=== PATIENT | male | born 1965 | race Caucasian/White ===

== ENCOUNTER 2017-01-09 10:09 | Emergency (ER) | payer MEDICAID ==
[~2017-01-09] VITALS: Ht 188 cm; Wt 95.3 kg
[~2017-01-09 10:09] MED LIST: ALBU8.5H4 IH; ASPI-991 PO; BECL8.7A6 IB; BENA20TA2 PO; BUPR150T12; LOVA10TA; QUET50TA
[2017-01-09] MEDS ORDERED: IV NS 0.9% 1,000 ML BAG IV ONE (10:30)
[2017-01-09] MEDS ORDERED: ONDANSETRON HCL/PF 4 MG/2 ML VIAL IVP ONE (10:30)
[2017-01-09] MEDS ORDERED: Thiamine 100 MG in IV D5W 50 ML IV SCH (10:30)
[2017-01-09 10:48] LABS: BASOPHILS # (AUTO) 0.1 /CMM (0.0-0.2); BASOPHILS % (AUTO) 0.6 % (0.0-2.0); EOSINOPHILS % (AUTO) 0.1 % (0.0-6.0); HEMATOCRIT 50 % (39-51); HEMOGLOBIN 16.3 g/dL (13.5-17.5); LYMPHOCYTES # (AUTO) 2.1 /CMM (0.8-4.8); LYMPHOCYTES % (AUTO) 19.6 % (20.0-44.0); MEAN CORPUSCULAR HEMOGLOBIN 28 PG (26.0-33.0); MEAN CORPUSCULAR HGB CONC 32 g/dl (31.0-36.0); MEAN CORPUSCULAR VOLUME 87 fL (80-96); MONOCYTES # (AUTO) 0.9 /CMM (0.1-1.30); NEUTROPHILS # (AUTO) 7.8 /CMM (1.8-8.9); NEUTROPHILS % (AUTO) 71.7 % (43.0-81.0); PLATELET COUNT (AUTO) 291 /CMM (150-450); RDW COEFFICIENT OF VARIATION 15.5 (11.5-15.0); RED BLOOD CELL COUNT(AUTO) 5.78 MIL/uL (4.5-6.0); WHITE BLOOD COUNT (AUTO) 10.9 K/uL (4.3-11.0)
--- NOTE | 2017-01-09 10:51 | NUR ---
CALLED PHARMACY FOR THIAMINE
--- NOTE | 2017-01-09 11:00 | NUR ---
ASSUME PT CARE. RESTING IN BED. HERE FOR DEPRESSION/ SI PLAN ON OVERDOSING ON MEDS. +ETOH. PLACED ON SI PRECAUTION. SEEN BY ED PROVIDER W/ ORDERS. WILL CONT TO MONITOR.
[2017-01-09 11:15] LABS: ALANINE AMINOTRANSFERASE 69 U/L (12-78); ALBUMIN 3.8 g/dL (3.4-5.0); ALCOHOL, BLOOD 189 mg/dL (0-0); ALKALINE PHOSPHATASE 134 U/L (46-116); ASPARTATE AMINOTRANSFERASE 45 U/L (15-37); BILIRUBIN,DIRECT 0.1 mg/dL (0.0-0.2); BILIRUBIN,TOTAL 0.4 mg/dL (0.2-1.0); CALCIUM, SERUM 8.8 mg/dL (8.5-10.1); CARBON DIOXIDE 24 mmol/L (21-32); CHLORIDE 104 mmol/L (98-107); CREATININE 0.9 mg/dL (0.6-1.3); GLUCOSE 98 mg/dL (74-106); POTASSIUM 4.1 mmol/L (3.5-5.1); SODIUM SERUM 144 mmol/L (136-145); TOTAL PROTEIN, SERUM 7.9 g/dL (6.4-8.2); UREA NITROGEN, BLOOD 17 mg/dL (7-18)
[2017-01-09 11:24] LABS: ACETAMINOPHEN < 2 ug/ml (10-30); SALICYLATE 2.3 mg/dL (2.8-20.0)
[2017-01-09] MEDS ORDERED: ONDANSETRON HCL/PF 4 MG/2 ML VIAL ONE ×2 (11:29→20:20)
[2017-01-09 13:33] LABS: APPEARANCE,URINE Clear (CLEAR); BILIRUBIN,URINE SMALL (NEGATIVE); BLOOD, URINE Trace-intact Ery/uL (NEGATIVE); COLOR,URINE Dark (YELLOW); KETONES,URINE 15 (NEGATIVE); LEUKOCYTE ESTERASE ,URINE Negative (NEGATIVE); NITRITE, URINE Negative (NEGATIVE); PH,URINE 5.5 (5.0-8.0); PROTEIN,URINE 100 mg/dl (NEGATIVE); UGLUCOSE Negative (NEGATIVE); UROBILINOGEN,URINE 0.2 EU/dL (0.2)
[2017-01-09 13:45] LABS: BACTERIA,URINE Rare /HPF (None Seen); SQUAMOUS EPITHELIAL CELL,UR Few /HPF (None Seen); WBC,URINE 0-2 /HPF (0-3)
[2017-01-09] MEDS ORDERED: DIAZEPAM 5 MG/ML 2 ML DISP.SYRIN ONE ×2 (13:51→20:21)
--- NOTE | 2017-01-09 13:52 | NUR ---
PT NOW APPEARS ANXIOUS, STATING, "I THINK IM GOING DT." DR LOPEZ MADE AWARE.
--- NOTE | 2017-01-09 13:56 | NUR ---
MEDICATED ORDERED. SEE EMAR.
[2017-01-09] MEDS ORDERED: DIAZEPAM 5 MG/ML 2 ML DISP.SYRIN IV ONE ×2 (14:00→20:00)
--- NOTE | 2017-01-09 15:30 | NUR ---
PT RESTING IN BED. ON MONITOR. STABLE CONDITION.
--- NOTE | 2017-01-09 18:47 | NUR ---
PT C/O NAUSEA AND ANXIETY. DR RODRIGUEZ MADE AWARE.
--- NOTE | 2017-01-09 19:31 | NUR ---
RN Tool Analyst called for sitter.
[2017-01-09] MEDS ORDERED: ONDANSETRON HCL/PF 4 MG/2 ML VIAL IV ONE (20:00)
--- NOTE | 2017-01-09 20:11 | NUR ---
CALLED [facility] TO FOLLOW UP WITH AN UPDATE, SPOKE WITH MEHRAN SHE SAID SHE SAID THEIR FACILITY IS FULL AND CANT ACCEPT ANY PATIENTS.
--- NOTE | 2017-01-09 23:54 | NUR ---
pt requesting valium for detox, states he is withdrawing from alcohol, also requesting for seroquel, usually takes at night. pt ambulatory w/ steady gait, resp even & unlabored, VSS w/ no apparent distress noted. Dr. Paiz notified.
--- NOTE | 2017-01-10 02:07 | NUR ---
pt restless, ambulating back and forth to nurse's station, requesting to speak w/ MD. pt instructed to wait in rm for MD. Dr. Paiz notified.
--- NOTE | 2017-01-10 04:02 | NUR ---
pt resting in bed w/ nad noted. Awaiting bed for voluntary admission.
--- NOTE | 2017-01-10 05:53 | NUR ---
PER EDWARD AT [facility], NO AVAILABLE BEDS AT THIS TIME, PENDING PT DISCHARGES IN AM, TO CHECK BACK AFTER 8AM.
--- NOTE | 2017-01-10 06:59 | NUR ---
DIETARY CALLED FOR LOW NA CARDIAC SAFETY TRAY.
--- NOTE | 2017-01-10 07:30 | NUR ---
Patient is resting comfortably in bed with eyes closed. Easily aroused. VSS
--- NOTE | 2017-01-10 08:59 | NUR ---
CALLED ART TO BE RE-EVALUATED
--- NOTE | 2017-01-10 09:30 | NUR ---
Patient is resting comfortably in bed with eyes closed. Easily aroused. VSS
--- NOTE | 2017-01-10 09:37 | NUR ---
SPOKE WITH AMMY,INTAKE AT [facility], STS SHE HAS NO RECORD OF THIS PT, CLINICALS FAXED TO [phone]
--- NOTE | 2017-01-10 09:45 | NUR ---
PT WAS SEEN BY , WILL GIVE MEDS ORDERED.
[2017-01-10] MEDS ORDERED: CHLORDIAZEPOXIDE HCL 25 MG CAPSULE ONE (09:49)
[2017-01-10] MEDS ORDERED: ONDANSETRON 4 MG TAB.RAPDIS ONE (09:50)
[2017-01-10] MEDS ORDERED: LORAZEPAM INJ 2 MG/ML VIAL ONE (09:51)
--- NOTE | 2017-01-10 09:55 | NUR ---
MARYCRUZ spoke with ED JENNIFER Haile who informed MARYCRUZ that he had faxed clinicals to [facility] an hour ago and has not heard back from them. MARYCRUZ contacted [facility] Intake and spoke to Kelly who informed MARYCRUZ they have not received any fax and to re-fax clinicals. MARYCRUZ faxed clinicals to Kelly at intake .
[2017-01-10] MEDS ORDERED: CHLORDIAZEPOXIDE HCL 25 MG CAPSULE PO ONE (10:00)
[2017-01-10] MEDS ORDERED: LORAZEPAM INJ 2 MG/ML VIAL IM ONE (10:00)
[2017-01-10] MEDS ORDERED: ONDANSETRON 4 MG TAB.RAPDIS SL ONE (10:00)
--- NOTE | 2017-01-10 10:00 | NUR ---
PT GIVEN 1MG ATIVAN IM ONCE. WASTED WITH CATARINA, RN - 1MG.
--- NOTE | 2017-01-10 12:15 | NUR ---
Patient is resting comfortably in bed with eyes closed. Easily aroused. VSS
--- NOTE | 2017-01-10 14:28 | NUR ---
ULISES FROM [facility] CALLED PATIENT WILL BE ACCEPTED BY DR RAYGOZA.
--- NOTE | 2017-01-10 14:37 | NUR ---
CALLED [facility] FOR TRANSPORT, ETA OF 1530.
--- NOTE | 2017-01-10 15:20 | NUR ---
Patient discharged to home in stable condition. Written and verbal after care instructions given. Patient verbalizes understanding of instruction. Report given to mayi, elana, pt going back to [facility].
[2017-01-10 15:26] VITALS: BP 126/75
== END 2017-01-10 15:25 ==
LOC: ER 10:12
DX: F32.9 Major depressive disorder, single episode, unspecified (principal); F10.20 Alcohol dependence, uncomplicated; I10 Essential (primary) hypertension; J45.909 Unspecified asthma, uncomplicated; Z79.82 Long term (current) use of aspirin; F17.200 Nicotine dependence, unspecified, uncomplicated
CPT/HCPCS: 36415; 80048-TC; 80076-TC; 80305; 81000-TC; 83735-TC; 85025-TC; A4606; G0480; J2060; J2405; J3360; J3411; J7030; J7060; Q0162; Z7610

== ENCOUNTER 2017-01-19 18:26 | Inpatient (IN) | payer MEDICAID ==
[~2017-01-19] VITALS: Ht 190.5 cm; Wt 97.5 kg
--- NOTE | 2017-01-19 18:26 | NUR ---
BIBRA 78 C/O OVERDOSE WITH SEROQUEL (ABOUT 20 TABS) AND BENAZEPRIL (ABT 10) PER PATIENT REPORT, HYPOTENSIVE EMBOSSER APPRENTICE
[2017-01-19] MEDS ORDERED: ACTIVATED CHARCOAL 25 GM/120 ML TUBE ONE ×2 (18:56→19:00)
[2017-01-19] MEDS ORDERED: ACTIVATED CHARCOAL 25 GM/120 ML TUBE PO ONE (19:00)
[2017-01-19] MEDS ORDERED: IV NS 0.9% 1,000 ML BAG IV ONE ×3 (19:00→22:30)
[2017-01-19] MEDS ORDERED: ONDANSETRON HCL/PF 4 MG/2 ML VIAL ONE (19:05)
[2017-01-19 19:12] LABS: BASOPHILS # (AUTO) 0.1 /CMM (0.0-0.2); BASOPHILS % (AUTO) 1.1 % (0.0-2.0); EOSINOPHILS # (AUTO) 0.2 /CMM (0.0-0.7); EOSINOPHILS % (AUTO) 3.3 % (0.0-6.0); HEMATOCRIT 36 % (39-51); HEMOGLOBIN 12.1 g/dL (13.5-17.5); LYMPHOCYTES # (AUTO) 1.4 /CMM (0.8-4.8); LYMPHOCYTES % (AUTO) 23.3 % (20.0-44.0); MEAN CORPUSCULAR HEMOGLOBIN 29 PG (26.0-33.0); MEAN CORPUSCULAR HGB CONC 33 g/dl (31.0-36.0); MEAN CORPUSCULAR VOLUME 87 fL (80-96); MONOCYTES # (AUTO) 0.6 /CMM (0.1-1.30); MONOCYTES % (AUTO) 9.4 % (2.0-12.0); NEUTROPHILS # (AUTO) 3.9 /CMM (1.8-8.9); NEUTROPHILS % (AUTO) 62.9 % (43.0-81.0); PLATELET COUNT (AUTO) 315 /CMM (150-450); RDW COEFFICIENT OF VARIATION 14.5 (11.5-15.0); RED BLOOD CELL COUNT(AUTO) 4.19 MIL/uL (4.5-6.0); WHITE BLOOD COUNT (AUTO) 6.2 K/uL (4.3-11.0)
--- NOTE | 2017-01-19 19:14 | NUR ---
MIS DIRECTOR AT BEDSIDE
[2017-01-19 19:26] LABS: CARBON DIOXIDE 23 mmol/L (21-32); CHLORIDE 109 mmol/L (98-107); CREATININE 1.1 mg/dL (0.6-1.3); GLUCOSE 118 mg/dL (74-106); SODIUM SERUM 140 mmol/L (136-145); UREA NITROGEN, BLOOD 18 mg/dL (7-18)
[2017-01-19 19:32] LABS: ACETAMINOPHEN 2 ug/ml (10-30); ALANINE AMINOTRANSFERASE 47 U/L (12-78); ALBUMIN 2.8 g/dL (3.4-5.0); ALCOHOL, BLOOD < 3 mg/dL (0-0); ALKALINE PHOSPHATASE 63 U/L (46-116); ASPARTATE AMINOTRANSFERASE 20 U/L (15-37); BILIRUBIN,DIRECT 0.1 mg/dL (0.0-0.2); BILIRUBIN,TOTAL 0.3 mg/dL (0.2-1.0); TOTAL PROTEIN, SERUM 5.5 g/dL (6.4-8.2)
[2017-01-19 19:33] LABS: SALICYLATE 1.6 mg/dL (2.8-20.0)
[2017-01-19 19:34] LABS: TROPONIN I < 0.017 ng/mL (0.00-0.056)
--- NOTE | 2017-01-19 20:56 | NUR ---
UNABLE TO PROVIDE URINE MARIBEL WEBBER MADE AWARE
[2017-01-19 21:05] LABS: APPEARANCE,URINE Clear (CLEAR); BILIRUBIN,URINE Negative (NEGATIVE); BLOOD, URINE Negative Ery/uL (NEGATIVE); COLOR,URINE Yellow (YELLOW); KETONES,URINE Negative (NEGATIVE); LEUKOCYTE ESTERASE ,URINE Negative (NEGATIVE); NITRITE, URINE Negative (NEGATIVE); PH,URINE 6.5 (5.0-8.0); PROTEIN,URINE Negative (NEGATIVE); UGLUCOSE Negative (NEGATIVE); UROBILINOGEN,URINE 0.2 EU/dL (0.2)
[2017-01-19] MEDS ORDERED: IV NS 0.9% 1,000 ML IV PRN (22:49)
--- NOTE | 2017-01-19 22:54 | NUR ---
REPORT GIVEN TO SELENA LOU.
[2017-01-19 22:56] LABS: CALCIUM, SERUM 7.7 mg/dL (8.5-10.1); CREATININE 0.9 mg/dL (0.6-1.3); POTASSIUM 4.2 mmol/L (3.5-5.1)
[2017-01-19] MEDS ORDERED: MAG HYDROX/AL HYDROX/SIMETH 30 ML UDC PO PRN ×2 (23:00→23:30)
[2017-01-19] MEDS ORDERED: ACETAMINOPHEN 325 MG TABLET PO PRN ×2 (23:00→23:30)
[2017-01-19] MEDS ORDERED: Z GUARD REMEDY 2 OZ OINT TP PRN ×2 (23:00→23:30)
[2017-01-19] MEDS ORDERED: ONDANSETRON HCL/PF 4 MG/2 ML VIAL IVP PRN ×2 (23:00→23:30)
[2017-01-19] MEDS ORDERED: MAGNESIUM HYDROXIDE 30 ML UDC PO PRN ×2 (23:00→23:30)
[2017-01-19] MEDS ORDERED: ZOLPIDEM TARTRATE 5 MG TABLET PO PRN ×2 (23:00→23:30)
[2017-01-19] MEDS ORDERED: ALBUTEROL SULFATE 8 GM HFA.AER.AD IH PRN ×2 (23:00→23:30)
[2017-01-19] MEDS ORDERED: HYDROCODONE/APAP 5/325MG 1 EACH TABLET PO PRN ×2 (23:00→23:30)
[2017-01-19 23:15] VITALS: BP 109/64
[2017-01-19] MEDS: IV NS 0.9% 1,000 ML IV PRN (23:42)
[2017-01-19] MEDS ORDERED: LORAZEPAM 1 MG TABLET ONE (23:58)
[2017-01-20] VITALS (22 sets, daily range): BP systolic 69–140; BP diastolic 37–82
--- NOTE | 2017-01-20 | NUR ---
OPERATIONS AND INTELLIGENCE ASSISTANT - REC'D PT. FROM ER, COOPERATIVE & ALERT X 3. PT. STATES THAT HE IS HOMELESS & HIS LEFT HIM FOR GOOD. PT. REQUESTED ATIVAN & STATES HE KNOWS WHEN HIS DT'S START. ATIVAN ONE MG/PO WAS ADM. LAST NIGHT. PT. WAS IVONNE - ATIVE, EXCEPT FOR WHEN HE FELL ASLEEP. PT.TOOK OFF BP CUFF & SAT MONITOR & SAID HE CANNOT SLEEP W/ALL THE "WIRES". O2 SATS ARE >94% ON O2/2L/NC. PT. DRANK H20 & ATE 2 SANDWICHES UPON ADMISSION. PT.IS USING URINAL WELL. AFEBRILE.
[2017-01-20] MEDS: LORAZEPAM 1 MG TABLET PO PRN ×6 (00:14→23:47)
--- NOTE | 2017-01-20 07:00 | NUR ---
RN NOTES RECEIVED PT ON BED, A/Ox3, RESPIRATION EVEN AND UNLABORED, ON O2 2L N/C , O2 SAT 95%, NO SOB NOTED ,ON TEL NSR IN 60'S , L FA AND R WRIST IV G 20 SITES CDI, WITH NS AT 100 CC/HR RUNNING VIA LFA IV SITE , NO DISTRESS NOTED, SR UP x3, CALL LIGHT WITHIN EASY REACH. CONTINUE TO MONITOR PT CLOSELY AND NOTIFY MD FOR ANY SIGNIFICANT CHANGES. Addendum: 01/20/17 at 1057 by AKILAH CRUZ RN CORRECTION PT HAS Katelyn ROSA IV SITE G 20 AND R WRIST H/L G 22
[2017-01-20] MEDS ORDERED: PANTOPRAZOLE 40 MG TABLET.DR PO SCH (07:30)
[2017-01-20] MEDS ORDERED: ALBUTEROL FS 2.5 MG/3 ML VIAL.NEB NEB PRN (08:00)
[2017-01-20] MEDS: PANTOPRAZOLE 40 MG TABLET.DR PO SCH (08:24)
[2017-01-20] MEDS: ASPIRIN EC 81 MG TABLET.DR PO SCH (08:24)
[2017-01-20] MEDS: IV NS 0.9% 1,000 ML IV PRN (08:57)
[2017-01-20] MEDS ORDERED: FLUTICASONE/SALMETEROL DISKUS IH SCH ×2 (09:00)
[2017-01-20] MEDS ORDERED: ASPIRIN EC 81 MG TABLET.DR PO SCH (09:00)
[2017-01-20] MEDS: FLUTICASONE/VILANTEROL 1 EACH BLST.W.DEV IH SCH (10:05)
--- NOTE | 2017-01-20 11:22 | NUR ---
RN NOTES PT STABLE , CALM AND COOPERATIVE AT THIS TIME, AWAITING FOR PSYCH CONSULT TO EVALUATE THE PT .CONTINUE TO MONITOR
--- NOTE | 2017-01-20 14:24 | NUR ---
RN NOTES PT RESTING ,CALM , COOPERATIVE , CHELSEA ANY DISTRESS , CONTINUE TO MONITOR .
--- NOTE | 2017-01-20 15:10 | NUR ---
RN NOTES DR KAY AT THE BEDSIDE SEEING THE PATIENT. CRISIS TEAM NOTIFIED TO EVALUATE THE PT PER DR. KAY'S ORDER .
[2017-01-20] MEDS: ESCITALOPRAM OXALATE (10 MG) 10 MG TABLET PO SCH (15:46)
[2017-01-20] MEDS: LITHIUM CARBONATE 150 MG CAPSULE PO SCH ×2 (16:17→20:45)
--- NOTE | 2017-01-20 17:03 | NUR ---
RN NOTES PT WANTS TO GO OUT AND SMOKE, CHARGE NURSE LAURIE AND DR GAN NOTIFIED , NEW ORDER RECEIVED . PT CAN GO TO MED- SURG UNIT WITH 1:1 SITTER , CONTINUE TO MONITOR PT CLOSELY.
[2017-01-20] MEDS: FOLIC ACID 1 MG TABLET PO SCH (17:24)
[2017-01-20] MEDS: NICOTINE PATCH (21MG) 21 MG PATCH.TD24 TD SCH (17:24)
[2017-01-20] MEDS: THIAMINE HCL 100 MG TABLET PO SCH (17:24)
[2017-01-20] MEDS: CYANOCOBALAMIN 100 MCG TABLET PO SCH (18:04)
--- NOTE | 2017-01-20 18:30 | NUR ---
RN NOTES PT AT REST, CALM AND COOPERATIVE AT THIS TIME ,RESPIRATION EVEN AND UNLABORED, NO DISTRESS NOTED, MEDICATED PER MD ORDER , WILL ENDORSE TO PET FEEDER RN FOR HONG .
[2017-01-20] MEDS ORDERED: QUETIAPINE FUMARATE 100 MG TABLET PO SCH (22:00)
--- NOTE | 2017-01-20 22:17 | NUR ---
STOCK CAR DRIVER - REC'D PT. A&O X 3, PT. HAS 1:1 SITTER AT BS. PT. IS FOLLOWING COMMANDS, VSS, AFEBRILE. PT.IS USING URINAL. GOOD UOP. ALL PULSES PALPABLE X 4 EXT. PM MEDS ADM. INCLUDING ATIVAN ONE MG/PO FOR COMFORT. PT.IS ON R/A & HAS O2 SATS >95%. PT. HAS 2 PIV'S THAT ARE HL'D & ALL PORTS PATENT TO FLUSH. PT. WAS TX'D TO [facility]=RM#[id number] 2. VERBAL REPORT PHONED TO MIGUEL ÁNGEL PAUL AT 22:00. MED. SURG STATUS. CONT. POC.
--- NOTE | 2017-01-20 22:30 | NUR ---
RECEIVED PT transfer from ICU ,pt admitted suicide attempt drug overdose. pt alert oriented, " no thought of suicide attempt at this time" as quote by pt. retains a 1:1 sitter. pt verbalized being depressed and even cries feeling depressed that he was not known by his daughter. q 3 hrs of ativan, denies any pain.eat well. will continue to monitor s/sx of suicide. vss,afebrile.
[2017-01-21] MEDS: LORAZEPAM 1 MG TABLET PO PRN ×3 (02:44→10:45)
--- NOTE | 2017-01-21 06:30 | NUR ---
PT SAYS NOT SLEEPING WELL OVERNIGHT, STILL DEPRESSED, CONTINUE WITH ATIVAN Q3HRS.DENIES ANY PAIN, NO TREMORS, NO SEIZURE EPISODE.WILL CONTINUE TO MONITOR.
[2017-01-21 06:43] LABS: BASOPHILS # (AUTO) 0.1 /CMM (0.0-0.2); BASOPHILS % (AUTO) 1.6 % (0.0-2.0); EOSINOPHILS # (AUTO) 0.5 /CMM (0.0-0.7); EOSINOPHILS % (AUTO) 6.2 % (0.0-6.0); HEMATOCRIT 41 % (39-51); HEMOGLOBIN 13.6 g/dL (13.5-17.5); LYMPHOCYTES # (AUTO) 2.8 /CMM (0.8-4.8); LYMPHOCYTES % (AUTO) 35.6 % (20.0-44.0); MEAN CORPUSCULAR HEMOGLOBIN 29 PG (26.0-33.0); MEAN CORPUSCULAR HGB CONC 33 g/dl (31.0-36.0); MEAN CORPUSCULAR VOLUME 88 fL (80-96); MONOCYTES # (AUTO) 0.8 /CMM (0.1-1.30); MONOCYTES % (AUTO) 9.8 % (2.0-12.0); NEUTROPHILS # (AUTO) 3.7 /CMM (1.8-8.9); NEUTROPHILS % (AUTO) 46.8 % (43.0-81.0); PLATELET COUNT (AUTO) 338 /CMM (150-450); RDW COEFFICIENT OF VARIATION 14.9 (11.5-15.0); RED BLOOD CELL COUNT(AUTO) 4.72 MIL/uL (4.5-6.0); WHITE BLOOD COUNT (AUTO) 7.9 K/uL (4.3-11.0)
[2017-01-21 06:57] LABS: CALCIUM, SERUM 8.5 mg/dL (8.5-10.1); CREATININE 0.8 mg/dL (0.6-1.3); POTASSIUM 3.8 mmol/L (3.5-5.1)
--- NOTE | 2017-01-21 07:31 | NUR ---
MS/RN OPENING NOTE PATIENT RECEIVED IN BED AWAKE IN STABLE CONDITION. A/O X 4. NO SINGS OF ACUTE DISTRESS. NO COMPLAIN OF PAIN OR DISCOMFORT. 1:1 SITTER AT BEDSIDE. ALL NEEDS ATTENDED TO. CALL LIGHT WITHIN REACH. WILL CONTINUE TO MONITOR TO ENSURE SAFETY.
[2017-01-21] MEDS: NICOTINE PATCH (21MG) 21 MG PATCH.TD24 TD SCH (08:40)
[2017-01-21] MEDS: ESCITALOPRAM OXALATE (10 MG) 10 MG TABLET PO SCH (08:40)
[2017-01-21] MEDS: THIAMINE HCL 100 MG TABLET PO SCH (08:40)
[2017-01-21] MEDS: ASPIRIN EC 81 MG TABLET.DR PO SCH (08:40)
[2017-01-21] MEDS: FOLIC ACID 1 MG TABLET PO SCH (08:41)
[2017-01-21] MEDS: PANTOPRAZOLE 40 MG TABLET.DR PO SCH (08:41)
[2017-01-21] MEDS: LITHIUM CARBONATE 150 MG CAPSULE PO SCH (08:41)
--- NOTE | 2017-01-21 08:46 | NUR ---
MARYCRUZ received a voicemail from Noe Fox informing MARYCRUZ that pt. would like to go to [facility] for voluntary psychiatric hospitalization. MARYCRUZ reviewed clinicals and faxed clinicals to intake at . MARYCRUZ contacted [facility] and spoke to Amee in intake who informed MARYCRUZ that she did received the fax and will review clinicals and follow up with MARYCRUZ.
[2017-01-21] MEDS: FLUTICASONE/VILANTEROL 1 EACH BLST.W.DEV IH SCH (09:00)
[2017-01-21] MEDS: CYANOCOBALAMIN 100 MCG TABLET PO SCH (10:45)
--- NOTE | 2017-01-21 10:46 | NUR ---
MARYCRUZ received a call back from Kelly from [facility] informing SW that they are accepting pt. and to fax discharge note that states "pt. is medically cleared". MARYCRUZ informed Dr. Morales to include "medically cleared" in his discharge summary.
[2017-01-21] MEDS ORDERED: ESCI10TA PO (10:57)
[2017-01-21] MEDS ORDERED: LITH150C PO (10:57)
[2017-01-21] MEDS ORDERED: QUET100T PO (10:57)
--- NOTE | 2017-01-21 11:34 | NUR ---
Social service consult requested by MARIANO Fox LCSW regarding pt. wanting voluntary psychiatric hospital at [facility]. Pt. was admitted to [facility] for intentional overdose and suicidal attempt. SW met with pt. bedside. Pt. is alert and oriented x4. Pt. informed SW that he has been homeless for the past week and a half due to relapsing and drinking alcohol. Pt. has been in two alcohol treatment programs in the past in [facility]. Pt's mailing address is [address] [place] [address]. [place] [id number]. Pt. would like to go voluntarily to [facility] for further treatment. SW informed pt. he has been accepted and [facility] will arrange transportation for him to go to [facility] located at [address] [place] [address]. ([phone]) MARYCRUZ contacted medsurchristine Cabezas and informed her to have pt's RN contact RN at [facility] for RN to RN report and Dr. Shirley is the accepting doctor.
--- NOTE | 2017-01-21 12:20 | NUR ---
MS/RN SEEN BY DR GAN PATIENT SEEN BY DR GAN WITH ORDERS TO DISCHARGE TO [facility] [place].
--- NOTE | 2017-01-21 12:54 | NUR ---
MS/RADIOLOGIC TECHNOLOGY INSTRUCTOR PATIENT DISCHARGED TO [facility]. A/O X 4. VOLUNTARY ADMISSIONS TO PSYCH UNIT. REPORT GIVEN TO GINNY CHARGE NURSE. NO SIGNS OF ACUTE DISTRESS. NO COMPLAIN OF PAIN OR DISCOMFORT. DISCHARGE INSTRUCTIONS AND TEACHING PROVIDED. VERBALIZED UNDERSTANDING. ALL NEEDS ATTENDED TO. REMOVE NAME BAND AND IV SITE. LEFT VIA TAXI IN STABLE CONDITION.
== END 2017-01-21 12:30 | disposition home or self-care (01) | DRG 812 ==
LOC: ER 18:27 → ICU 23:21 → MED 01-20 22:00
DX: T43.592A Poisoning by other antipsychotics and neuroleptics, intentional self-harm, initial encounter (principal); E44.0 Moderate protein-calorie malnutrition; E83.51 Hypocalcemia; F31.5 Bipolar disorder, current episode depressed, severe, with psychotic features; I10 Essential (primary) hypertension; E78.5 Hyperlipidemia, unspecified; Z59.0 Homelessness; T43.591A Poisoning by other antipsychotics and neuroleptics, accidental (unintentional), initial encounter; T46.4X1A Poisoning by angiotensin-converting-enzyme inhibitors, accidental (unintentional), initial encounter; Y92.009 Unspecified place in unspecified non-institutional (private) residence as the place of occurrence of the external cause; J45.909 Unspecified asthma, uncomplicated; Z79.899 Other long term (current) drug therapy; Z79.82 Long term (current) use of aspirin; R73.9 Hyperglycemia, unspecified; F10.20 Alcohol dependence, uncomplicated; Y90.0 Blood alcohol level of less than 20 mg/100 ml
CPT/HCPCS: 36415; 71010-TC; 80048-TC; 80076-TC; 80305; 81000-TC; 84484-TC; 85025-TC; 87081-TC; G0480; J2405; J7030

== ENCOUNTER 2017-02-12 12:20 | Inpatient (IN) | payer MEDICAID ==
[2017-02-12] VITALS (11 sets, daily range): BP systolic 114–155; BP diastolic 59–93
[~2017-02-12] VITALS: Ht 190.5 cm; Wt 100.7 kg
[~2017-02-12 12:20] MED LIST changes: -BUPR150T12; +ESCI10TA PO; +LITH150C PO; +QUET100T PO; -QUET50TA
--- NOTE | 2017-02-12 12:50 | NUR ---
SHREYAS FROM A [facility] DT DRUG OVERDOSE- LISINOPRIL, SEROQUEL, PT FOR PSYCHE ECAL" I JUST WANNA SLEEP AND NEVER WAKE UP AGAIN". NAD NOTED, VSS, PUT ON HOSPITAL GOWN AND MONITOR, WAITING FOR MD MACIEL.
--- NOTE | 2017-02-12 13:06 | NUR ---
VERBALIZED HE TOOK 30 TABS EACH OF OF LISINOPRIL AND SEROQUEL AT 0200, UNKNOWN MGS.
--- NOTE | 2017-02-12 13:12 | NUR ---
POISON CONTROL CALLED, SPOKE WITH IDALMIS, RECOMMENDATIONS: FLUID BOLUS AND PRESSORS IF THEY DON'T WORK,WATCH FOR Q-T WIDENING AND MAY NEED MGSO4 1-2GM IF PROLONGED,MONITOR FOR SZ/SEDATION,CHECK FOR TYLENOL,ASPIRIN,UTOX AND ALCOHOL ASIDE FROM BASIC LABS
[2017-02-12 13:13] LABS: BASOPHILS # (AUTO) 0.1 /CMM (0.0-0.2); BASOPHILS % (AUTO) 0.5 % (0.0-2.0); EOSINOPHILS % (AUTO) 0.3 % (0.0-6.0); HEMATOCRIT 43 % (39-51); HEMOGLOBIN 14.2 g/dL (13.5-17.5); LYMPHOCYTES # (AUTO) 1.5 /CMM (0.8-4.8); LYMPHOCYTES % (AUTO) 11.5 % (20.0-44.0); MEAN CORPUSCULAR HEMOGLOBIN 29 PG (26.0-33.0); MEAN CORPUSCULAR HGB CONC 33 g/dl (31.0-36.0); MEAN CORPUSCULAR VOLUME 87 fL (80-96); NEUTROPHILS # (AUTO) 10.2 /CMM (1.8-8.9); NEUTROPHILS % (AUTO) 79.7 % (43.0-81.0); PLATELET COUNT (AUTO) 226 /CMM (150-450); RDW COEFFICIENT OF VARIATION 13.9 (11.5-15.0); RED BLOOD CELL COUNT(AUTO) 4.92 MIL/uL (4.5-6.0); WHITE BLOOD COUNT (AUTO) 12.8 K/uL (4.3-11.0)
--- NOTE | 2017-02-12 13:19 | NUR ---
called nursing sup for ICU bed.
[2017-02-12 13:27] LABS: CALCIUM, SERUM 9.1 mg/dL (8.5-10.1); CREATININE 2.3 mg/dL (0.6-1.3); POTASSIUM 4.2 mmol/L (3.5-5.1)
[2017-02-12] MEDS ORDERED: IV NS 0.9% 1,000 ML BAG IV ONE (13:30)
--- NOTE | 2017-02-12 13:30 | NUR ---
URINE SENT TO LAB
[2017-02-12 13:33] LABS: ALBUMIN 3.7 g/dL (3.4-5.0); BILIRUBIN,DIRECT 0.1 mg/dL (0.0-0.2); BILIRUBIN,TOTAL 0.4 mg/dL (0.2-1.0); TOTAL PROTEIN, SERUM 6.8 g/dL (6.4-8.2)
[2017-02-12 13:34] LABS: SALICYLATE 2.4 mg/dL (2.8-20.0)
[2017-02-12] MEDS ORDERED: SIMV40TA5 PO (13:41)
[2017-02-12] MEDS ORDERED: LITH300T3 PO (13:41)
[2017-02-12] MEDS ORDERED: ESCI10TA PO (13:41)
[2017-02-12] MEDS ORDERED: QUET100T PO (13:41)
--- NOTE | 2017-02-12 13:42 | NUR ---
called panel for admit
--- NOTE | 2017-02-12 13:53 | NUR ---
ICU BED ASSIGNED. PT IS BEING ADMITTED FOR OD ( LISINOPRIL & SEROQUEL).EVIDENTLY, PT IS LETHARGIC BUT AROUSABLE TO ALL STIMULI. PT ANSWERS QUESTIONS SLOWLY BUT COHERENTLY. AND GOES RIGHT BACK TO SLEEP. AIRWAY REMAINS PATENT & PROTECTED WITH GOOD RESPIRATORY RATE/EFFORT.
[2017-02-12 13:58] LABS: APPEARANCE,URINE Cloudy (CLEAR); BILIRUBIN,URINE Negative (NEGATIVE); BLOOD, URINE Small Ery/uL (NEGATIVE); COLOR,URINE Yellow (YELLOW); KETONES,URINE Negative (NEGATIVE); LEUKOCYTE ESTERASE ,URINE Negative (NEGATIVE); NITRITE, URINE Negative (NEGATIVE); PH,URINE 5.5 (5.0-8.0); PROTEIN,URINE Negative (NEGATIVE); UGLUCOSE Negative (NEGATIVE); UROBILINOGEN,URINE 0.2 EU/dL (0.2)
--- NOTE | 2017-02-12 14:01 | NUR ---
bed assignment icu [id number]
[2017-02-12 14:12] LABS: BACTERIA,URINE Few /HPF (None Seen); MUCUS,URINE Few /LPF (None Seen); SQUAMOUS EPITHELIAL CELL,UR Few /HPF (None Seen); WBC,URINE 0-2 /HPF (0-3)
[2017-02-12] MEDS ORDERED: IV D5/0.45 NACL 1,000 ML IV PRN (14:29)
[2017-02-12] MEDS ORDERED: MAGNESIUM HYDROXIDE 30 ML UDC PO PRN ×2 (14:30→15:30)
[2017-02-12] MEDS ORDERED: ZOLPIDEM TARTRATE 5 MG TABLET PO PRN ×2 (14:30→15:30)
[2017-02-12] MEDS ORDERED: ONDANSETRON HCL/PF 4 MG/2 ML VIAL IVP PRN (14:30)
[2017-02-12] MEDS ORDERED: Z GUARD REMEDY 2 OZ OINT TP PRN ×2 (14:30→15:30)
[2017-02-12] MEDS ORDERED: ACETAMINOPHEN 325 MG TABLET PO PRN ×2 (14:30→15:30)
[2017-02-12] MEDS ORDERED: MAG HYDROX/AL HYDROX/SIMETH 30 ML UDC PO PRN ×2 (14:30→15:30)
[2017-02-12 14:42] LABS: INR 0.92 (0.87-1.13); PROTHROMBIN TIME 9.6 SECS (9.5-12.7)
--- NOTE | 2017-02-12 14:47 | NUR ---
report given to gerry, agricultural adviser
--- NOTE | 2017-02-12 14:50 | NUR ---
EYE CARE PROFESSIONAL NOTES RECEIVED PATIENT DROWSY , RESPONSIVE TO VERBAL STIMULI , NOT IN ACUTE DISTRESS , RESPIRATIONS EVEN AND UNLABORED , BRADYPNEA RR OF 10CPM , SR 85 ON BEDSIDE MONITOR , FC DRAINING VIA GRAVITY WITH CLEAR YELLOW URINE , SKIN ASSESSMENT DONE , NO WOUNDS NOTED SKIN IS INTACT , IV OF L WRIST # 18 AND R WRIST # 18 PATENT AND INTACT , IVF OF D5 1/2 NS @ 75ML/HR STARTED ORDERED , BELONGING LIST CHECKED , ALL NEEDS ATTENDED , BED ON LOW AND LOCKED POSITION , SIDE RAILS X3 , CALL LIGHT WITHIN REACH, HON @ 35 , BED ALARM MADE AUDBLE , UNABLE TO ASSESS SUICIDAL THOUGH AND IDEATION PT IS DROWSY AND NOTED TO HAVE UNCLEAR SPEECH , PSYCH CONSULT ORDERED , FACE SHEET FAXED TO [facility] . SAFETY PRECAUTION OBSERVED , WILL CONTINUE TO MONITOR
[2017-02-12] MEDS: IV D5/0.45 NACL 1,000 ML IV PRN (15:45)
--- NOTE | 2017-02-12 17:45 | NUR ---
SEWAGE DISPOSAL WORKER NOTES SPOKE WITH IDALMIS FROM POISON CONTROL , NOTIFIED BP OF 110-55 S/P 2 UNITS BOLUS IN ER , SR 80-90'S - ST 110 ON BEDSIDE MONITOR WITH NO ARRHYTHMIA , PT STILL DROWSY ,
--- NOTE | 2017-02-12 18:46 | NUR ---
ASSISTANT EXECUTIVE HOUSEKEEPER NOTES PT IS MORE AWAKE , STILL DROWSY , SPEECH DELAYED BUT MORE CLEARER , RE ORIENT PT TO PLACE DATE AND TIME , PT DENIES ANY SUICIDAL AND HOMICIDAL IDEATION AT THIS TIME , WILL CONTINUE TO MONITOR
--- NOTE | 2017-02-12 19:21 | NUR ---
RN;ICU: PT RECEIVED IN BED AROUSABLE BUT DROWSY. PT ASKING FOR SLEEPING MEDICATION, PT INFORMED THAT HE IS MUCH TO TIRED/LETHARGIC TO RECEIVE ANY SEDATIVES AND THAT ATTEMPTED SI WITH SEROQUEL. PT RESPONDS WITH INCOHERENT SPEECH BUT IS MORE AROUSABLE THAN HE WAS EARLIER IN THE SHIFT PER DAYSHIFT. ATTEMPTED TO REORIENT PT, WITH MINIMAL SUCCESS. 1:1 SITTER AT THE BEDSIDE FOR PATIENT SAFETY. PT DENIES ANY SI OR DESIRE TO HURT OTHERS. VSS. SI AND SAFETY PRECAUTIONS IN PLACE.
--- NOTE | 2017-02-12 23:00 | NUR ---
RN;ICU: PT REMAINS CONFUSED AND RESTLESS. POISON CONTROL CALLED AND RECEIVED UPDATES. PER REP IT WILL TAKE ROUGHLY 24 HOURS FOR THE SEROQUEL TO BE METABOLIZED BUT THE TETO INHIBITOR IS LIKELY HAVE ALREADY METABOLIZED. WILL CONTINUE TO MONITOR CLOSELY.
[2017-02-13] VITALS (23 sets, daily range): BP systolic 107–160; BP diastolic 50–95
[2017-02-13] MEDS: ONDANSETRON HCL/PF 4 MG/2 ML VIAL IVP PRN ×2 (02:52→16:27)
--- NOTE | 2017-02-13 02:55 | NUR ---
rn;icu: pt reporting nausea. aspiration precautions in place. zofran admin per md orders. will continue to monitor closely.
[2017-02-13] MEDS: IV D5/0.45 NACL 1,000 ML IV PRN ×2 (04:21→16:50)
[2017-02-13 04:48] LABS: BASOPHILS % (AUTO) 0.2 % (0.0-2.0); EOSINOPHILS % (AUTO) 0.3 % (0.0-6.0); HEMATOCRIT 41 % (39-51); HEMOGLOBIN 13.5 g/dL (13.5-17.5); LYMPHOCYTES # (AUTO) 1.1 /CMM (0.8-4.8); LYMPHOCYTES % (AUTO) 6.6 % (20.0-44.0); MEAN CORPUSCULAR HEMOGLOBIN 29 PG (26.0-33.0); MEAN CORPUSCULAR HGB CONC 33 g/dl (31.0-36.0); MEAN CORPUSCULAR VOLUME 88 fL (80-96); MONOCYTES # (AUTO) 1.3 /CMM (0.1-1.30); MONOCYTES % (AUTO) 7.6 % (2.0-12.0); NEUTROPHILS # (AUTO) 14.2 /CMM (1.8-8.9); NEUTROPHILS % (AUTO) 85.3 % (43.0-81.0); PLATELET COUNT (AUTO) 238 /CMM (150-450); RDW COEFFICIENT OF VARIATION 14.8 (11.5-15.0); WHITE BLOOD COUNT (AUTO) 16.6 K/uL (4.3-11.0)
[2017-02-13 05:24] LABS: ALBUMIN 3.4 g/dL (3.4-5.0); BILIRUBIN,TOTAL 0.6 mg/dL (0.2-1.0); CALCIUM, SERUM 8.5 mg/dL (8.5-10.1); CREATININE 1.2 mg/dL (0.6-1.3); PHOSPHORUS 3.1 mg/dL (2.5-4.9); POTASSIUM 3.9 mmol/L (3.5-5.1); TOTAL PROTEIN, SERUM 6.5 g/dL (6.4-8.2)
--- NOTE | 2017-02-13 06:26 | NUR ---
RN;ICU: PT MORE ALERT AND COOPERATIVE AT THIS TIME. PT FOLLOWING COMMANDS AND RESTING COMFORTABLY IN BED. SITTER REMAINS AT THE BEDSIDE. IV SITES REMAIN INTACT AND VSS. PT DENIES SI AT THIS TIME. WILL CONTINUE TO MONITOR CLOSELY.
--- NOTE | 2017-02-13 07:18 | NUR ---
BILLIARD TABLE REPAIRER NOTES RECEIVED PATIENT LESS DROWSY , MORE AWAKE , FOLLOWING COMMANDS, NOT IN ACUTE DISTRESS , RESPIRATIONS EVEN AND UNLABORED , SPO2 OF 98% VIA 2LPM NC ,SR 85 ON BEDSIDE MONITOR , FC DRAINING VIA GRAVITY WITH CLEAR YELLOW URINE , IV OF L WRIST # 18 AND R WRIST # 18 PATENT AND INTACT WITH IVF OF D5 1/2 NS @ 75ML/HR INFUSING WELL , ALL NEEDS ATTENDED , BED ON LOW AND LOCKED POSITION , SIDE RAILS X3 , CALL LIGHT WITHIN REACH, HOB @ 35 , BED ALARM MADE AUDIBLE , 1:1 SITTER AT BEDSIDE , WILL CONTINUE TO MONITOR .
[2017-02-13] MEDS ORDERED: ALBUTEROL FS 2.5 MG/3 ML VIAL.NEB NEB PRN (07:35)
--- NOTE | 2017-02-13 08:15 | NUR ---
LACING PRESSER NOTES EKG OBTAINED PT HR ON BEDSIDE MONITOR LOOKS LIKE A FLUTTER , EKG SHOWS NSR 97 BMP .
--- NOTE | 2017-02-13 10:38 | NUR ---
STRESS ENGINEER NOTES SEEN AND EVALUATED BY DR KONG FOR PSYCH CONSULT , OD WITH UNKNOWN AMOUNT OF LISINOPRIL AND SEROQUEL SAME THING HAPPED A MONTH AGO , PT VERBALIZED IN ER UPON ADMISSION THAT HE DOES "WANTS TO SLEEP AND DOESN'T WAKE UP ANYMORE " CURRENTLY WITH 1:1 SITTER AWAKE ALERT X2-3 FOLLOWS COMMANDS , NON COMBATIVE , DENIES ANY SUICIDAL AND HOMICIDAL IDEATION , MD AWARE
--- NOTE | 2017-02-13 10:55 | NUR ---
CUSTOMER SUPPORT ASSOCIATE NOTES RECEIVED A CALL FROM POISON CONTROL , SPOKE WITH NICCI , DISCUSSED LATEST VITALS SIGNS , PT IS MORE AWAKE , ALERT X2 FOLLOWS COMMANDS , WITH 1:1 SITTER , BP WNL , PER CARMEN THEY ARE CLOSING CASE , CASE # [id number]
--- NOTE | 2017-02-13 10:59 | NUR ---
FOREIGN LANGUAGE STENOGRAPHER NOTES PT REFUSES PHYSICAL THERAPY AT THIS TIME , VERBALIZED THAT HE IS NOT READY YET , WILL CONTINUE TO MONITOR
[2017-02-13] MEDS: LITHIUM CARBONATE 150 MG CAPSULE PO SCH ×2 (12:13→16:27)
--- NOTE | 2017-02-13 16:44 | NUR ---
DIRECTOR PRODUCT DEVELOPMENT NOTES PT IS AWAKE ALERT ,RE ORIENT TO PLACE DATE AND TIME , ABLE TO VERBALIZED NAME AGE AND BIRTHDAY , PATIENT DENIES ANY SUICIDAL AND HOMICIDAL IDEATION AT THIS TIME , VERBALIZED THAT HE'S BEEN SLEEPING ALL DAY AND HE DID ATTEMPTED OVERDOSE , CALM AND COOPERATIVE , NON COMBATIVE , 1:1 SITTER AT BEDSIDE , PT NOTED TO HAVE NAUSEA WITH BURNING SENSATION , ZOFRAN AND MILK OF MAGNESIA GIVEN PRN , REIS CATHETER DISCONTINUED , PT TOLERATED WELL , WILL MONITOR FOR POST VOID RESIDUALS .
--- NOTE | 2017-02-13 17:36 | NUR ---
COMMUNICATIONS PLANNER NOTES REPORT GIVEN TO MAHIN FOR CONTINUITY OF CARE . ALL QUESTIONS ANSWERED .
--- NOTE | 2017-02-13 18:16 | NUR ---
SURGICAL PATHOLOGIST NOTES TRANSFERRED PT TO TELE 3 - ROOM 322-1 WITH ALL HIS BELONGINGS , STABLE AT THIS TIME , V/S STABLE , AFEBRILE , NOT IN ACUTE DISTRESS ON 2LPM NC , DENIES ANY SUICIDAL AND HOMICIDAL IDEATION , WITH 1:1 SITTER ,
--- NOTE | 2017-02-13 18:37 | NUR ---
DRAWER WAXER NOTES PATIENT ADMITTED/TRANSFERRED TO UNIT AT 1815H FROM ICU VIA ARNIERMARCIA ACCOMPANIED BY ICU NURSE GIBSON. ALERT AND ORIENTED X3, NO C/O PAIN OR DISCOMFORTS VOICED. PT WITH DX OF ATTEMPTED SUICIDE IDEATION, DENIES SUICIDAL THOUGHTS AT THIS TIME. PT ON TELE-MONITORING WITH CURRENT READINGS OF SR WITH HR ON THE 90'2, NO C/O CHEST PAIN, LIGHTHEADEDNESS OR N &V. PT HAS IV ACCESS ON LEFT WRIST G#18 AND RIGHT WRIST G#18, BOTH INTACT AND PATENT. PT WITH IVF OF D5 1/2 NS INFUSING WELL TO RIGHT WRIST, NO S/S OF INFILTRATION NOTED. ON SUPPLEMENTAL 02 VIA N/C AT 2LPM, BREATHING EVEN AND UNLABORED WITH SP02 OF 96% NOTED. V/S TAKEN: BP 132/79, R 18, P 96, T 98.9F. PLACED BED IN LOW AND LOCKED POSITION WITH SIDE-RAILS UP X2. CALL LIGHT WITHIN REACH. PT S/P REIS REMOVED FROM ICU, PT HASN'T URINATED AT THIS TIME. WILL ENDORSED TO LEATHER SPLITTER NURSE TO MONITOR FOR VOIDING/URINARY RESIDUAL AND TO CONTINUE HONG. .
--- NOTE | 2017-02-13 19:30 | NUR ---
MS RN NOTE RECEIVED PATIENT ASLEEP IN BED. EASILY AROUSABLE. NO SUICIDAL IDEATION AT THIS TIME. NO RESPIRATORY DISTRESS OR SOB NOTED. IV SITES INTACT, WITH FLUIDS RUNNING ORDERED. SITTER AT BEDSIDE. BED LOCKED AND IN LOWEST POSITION, SIDE RAILS UP, CALL LIGHT WITHIN REACH. WILL CONTINUE TO MONITOR.
[2017-02-13] MEDS ORDERED: QUETIAPINE FUMARATE 100 MG TABLET PO SCH (22:00)
[2017-02-14] VITALS: BP 103/55
[2017-02-14] MEDS: IV D5/0.45 NACL 1,000 ML IV PRN (05:45)
--- NOTE | 2017-02-14 06:16 | NUR ---
HAM PASSER NOTE PATIENT STABLE. ALL NEEDS MET AND ATTENDED TO. WILL ENDORSE TO DAY SHIFT FOR HONG.
--- NOTE | 2017-02-14 07:45 | NUR ---
TELE/NOTE OPENING NOTE PATIENT RECEIVED IN BED IN STABLE CONDITION. A/O X4. NO SIGNS OF ACUTE DISTRESS. NO COMPLAIN OF PAIN OR DISCOMFORT. TELE MONITOR WITH SR. 1:1 SITTER AT BEDSIDE. ALL NEEDS ATTENDED TO. CALL LIGHT WITHIN REACH. WILL CONTINUE TO MONITOR TO ENSURE SAFETY.
[2017-02-14 08:00] VITALS: BP 105/63
[2017-02-14] MEDS ORDERED: ESCITALOPRAM OXALATE (10 MG) 10 MG TABLET PO SCH (09:00)
[2017-02-14] MEDS: LITHIUM CARBONATE 150 MG CAPSULE PO SCH (09:27)
--- NOTE | 2017-02-14 10:15 | NUR ---
tele mirror framer: psych f/u dr. garibay in room and talking to pt at this time. pt still insisting going against medical advise. dr. garibay says he is not holdable and he can leave ama as stated.
--- NOTE | 2017-02-14 10:24 | NUR ---
tele commodity industry analyst: notes abiola (social media manager) at bedside at this time. pt still wants to leave ama.
--- NOTE | 2017-02-14 10:29 | NUR ---
tele loadmaster: notes tele removed. after talking to social professionals, pt refused held when offered; also refused resources.
--- NOTE | 2017-02-14 11:20 | NUR ---
MS RN PATIENT WENT AMA, DESPITE OF EXPLAINING THE RISKS AND CONSEQUENCES OF GOING AMA, LEFT HOSPITAL AT THIS TIME, REFUSED TO GET AMA PAPERS BUT ABLE TO SIGN.
--- NOTE | 2017-02-14 11:36 | NUR ---
Social service consult requested by Med Surg JENNIFER Cabezas for overdose. Pt. is a 51 year old male who was admitted to [facility] after overdosing on Seroquel. MARYCRUZ met with pt. bedside. SW is familiar with pt. from a previous admission on January 19, 2017. Pt. is alert and oriented x3. Pt. is cooperative with SW during the assessment. Pt. appears to have a depressed mood with depressed affect. Pt. does display delusion of grandiosity. Pt. has a history of alcohol abuse. Pt. was sober for approximately two and a half years but relapsed two or three months ago. Pt. was living with his but due to his alcohol abuse, he was kicked out of the home. Pt. states he currently resides at a sober living but is reluctant to provide any address or information.Pt. has had a history of psychiatric hospitalizations and was admitted to [facility] psychiatric facility in December. SW inquired with pt. if he would like to go voluntary to [facility]. Pt. began stating that "the [facility] is a dump and I want to leave the hospital AMA". SW encouraged pt. to stay, however pt. was not very receptive. SW offered pt. resources, however pt. declined all resources. No other social service needs are required at this time. SW is available if needed. MARYCRUZ informed JENNIFER Cabezas regarding pt. wanting to leave AM.
== END 2017-02-14 19:40 | disposition left against medical advice (07) | DRG 812 ==
LOC: ER 12:25 → ICU 15:27 → TELE 02-13 18:25 → MED 02-14 12:45
PROVIDERS: ADMIT Internal Medicine; ATTEND Internal Medicine
DX: T43.592A Poisoning by other antipsychotics and neuroleptics, intentional self-harm, initial encounter (principal); N17.0 Acute kidney failure with tubular necrosis; T46.4X2A Poisoning by angiotensin-converting-enzyme inhibitors, intentional self-harm, initial encounter; F31.5 Bipolar disorder, current episode depressed, severe, with psychotic features; I10 Essential (primary) hypertension; E78.5 Hyperlipidemia, unspecified; J45.909 Unspecified asthma, uncomplicated; Z59.0 Homelessness; F10.20 Alcohol dependence, uncomplicated; Z79.899 Other long term (current) drug therapy; Z91.5 Personal history of self-harm; Y92.9 Unspecified place or not applicable
CPT/HCPCS: 36415; 71010-TC; 80048-TC; 80053-TC; 80061-TC; 80076-TC; 80305; 81000-TC; 83735-TC; 84100-TC; 85025-TC; 85730-TC; 87081-TC; G0480; J2405; J3490; J7030; Z7610

== ENCOUNTER 2017-08-14 19:27 | Emergency (ER) | payer MEDICAID, OTHER ==
[~2017-08-14] VITALS: Ht 190.5 cm; Wt 86.2 kg
[~2017-08-14 19:27] MED LIST changes: +ASPI-1153 PO; -ASPI-991 PO; -BECL8.7A6 IB; -BENA20TA2 PO; +BENA20TA9 PO; -LITH150C PO; +LITH300T3 PO; -LOVA10TA; +SIMV40TA5 PO
[2017-08-14 19:39] VITALS: BP 114/78
[2017-08-14] MEDS ORDERED: IV NS 0.9% 1,000 ML BAG IV ONE (20:00)
--- NOTE | 2017-08-14 20:15 | NUR ---
STARTED A SALINE LOCK ON THE RIGHT WRIST G18, BLOOD DRAWN AND SENT TO LAB.
[2017-08-14 20:19] LABS: BASOPHILS % (AUTO) 0.5 % (0.0-2.0); EOSINOPHILS % (AUTO) 0.7 % (0.0-6.0); HEMATOCRIT 43 % (39-51); HEMOGLOBIN 14.3 g/dL (13.5-17.5); LYMPHOCYTES # (AUTO) 2.3 /CMM (0.8-4.8); LYMPHOCYTES % (AUTO) 25.8 % (20.0-44.0); MEAN CORPUSCULAR HGB CONC 33 g/dl (31.0-36.0); MEAN CORPUSCULAR VOLUME 85 fL (80-96); MONOCYTES # (AUTO) 0.5 /CMM (0.1-1.30); MONOCYTES % (AUTO) 5.2 % (2.0-12.0); NEUTROPHILS # (AUTO) 6.1 /CMM (1.8-8.9); NEUTROPHILS % (AUTO) 67.8 % (43.0-81.0); PLATELET COUNT (AUTO) 289 /CMM (150-450); RDW COEFFICIENT OF VARIATION 14.9 (11.5-15.0); RED BLOOD CELL COUNT(AUTO) 5.08 MIL/uL (4.5-6.0)
[2017-08-14 20:29] LABS: CALCIUM, SERUM 8.8 mg/dL (8.5-10.1); CREATININE 0.8 mg/dL (0.6-1.3); POTASSIUM 3.3 mmol/L (3.5-5.1)
[2017-08-14 20:35] LABS: ALBUMIN 3.4 g/dL (3.4-5.0); BILIRUBIN,DIRECT 0.1 mg/dL (0.0-0.2); BILIRUBIN,TOTAL 0.4 mg/dL (0.2-1.0); TOTAL PROTEIN, SERUM 6.8 g/dL (6.4-8.2)
--- NOTE | 2017-08-14 20:40 | NUR ---
BIBSELF C/O RECTAL BLEEDING AND VOMITING BLOOD X 2 DAYS, HAS HX OF SAME 6 MONTHS AGO FROM ETOH PER PATIENT. PATIENT IS AAOX3, NAD NOTED. BREATHING EVEN AND UNLABORED. SKIN WARM AND DRY. AMBULATORY.
[2017-08-14] MEDS ORDERED: FAMOTIDINE/PF INJ 20 MG/2 ML VIAL IV ONE (21:00)
[2017-08-14] MEDS ORDERED: ONDANSETRON HCL/PF 4 MG/2 ML VIAL IV ONE (21:00)
--- NOTE | 2017-08-14 21:09 | NUR ---
PATIENT ELOPED FROM FACILITY. FOUND IV CATH ON THE FLOOR. DR TRAN NOTIFIED.
== END 2017-08-14 21:10 | disposition left against medical advice (07) ==
LOC: ER 19:29
DX: K29.21 Alcoholic gastritis with bleeding (principal); F10.229 Alcohol dependence with intoxication, unspecified; E78.00 Pure hypercholesterolemia, unspecified; F31.9 Bipolar disorder, unspecified; E86.0 Dehydration; I10 Essential (primary) hypertension; J45.909 Unspecified asthma, uncomplicated; Z71.6 Tobacco abuse counseling; Z79.82 Long term (current) use of aspirin
CPT/HCPCS: 36415; 80048; 80076; 83690; 85025; 96360; 99284; 99406; A4606; G0480; J7030; Z7610

== ENCOUNTER 2019-12-10 02:29 | Emergency (ER) | payer BC, OTHER ==
[~2019-12-10] VITALS: Ht 188 cm; Wt 81.6 kg
[~2019-12-10 02:29] MED LIST changes: -ASPI-1153 PO; +ASPI-1498 PO; +SIMV-49 PO; -SIMV40TA5 PO
--- NOTE | 2019-12-10 02:40 | NUR ---
PT AAOX4. BIBSELF C/O RUQ PAIN RADIATING TO BACK. STATED "MY PANCREASE IS FLARING UP" ALSO VOMITING BILE. PT PLACED ON MONITOR AND PULSE OX. VSS. NO ACUTE DISTRESS NOTED. PT HAS NOT VOMITED SINCE 9PM.
[2019-12-10] MEDS ORDERED: ONDANSETRON HCL/PF 4 MG/2 ML VIAL ONE (02:44)
[2019-12-10] MEDS ORDERED: KETOROLAC TROMETHAMINE 15 MG/ML VIAL ONE (02:44)
[2019-12-10] MEDS ORDERED: ONDANSETRON HCL/PF 4 MG/2 ML VIAL IVP ONE (03:00)
[2019-12-10] MEDS ORDERED: KETOROLAC TROMETHAMINE INJ 30 MG/ML VIAL IV ONE (03:00)
[2019-12-10] MEDS ORDERED: IV NS 0.9% 1,000 ML BAG IV ONE (03:00)
[2019-12-10 03:01] LABS: BASOPHILS % (AUTO) 0.3 % (0.0-2.0); EOSINOPHILS % (AUTO) 3.3 % (0.0-6.0); HEMATOCRIT 44 % (39-51); HEMOGLOBIN 14.5 g/dL (13.5-17.5); LYMPHOCYTES # (AUTO) 2.8 /CMM (0.8-4.8); LYMPHOCYTES % (AUTO) 28.2 % (20.0-44.0); MEAN CORPUSCULAR HGB CONC 33 g/dl (31.0-36.0); MEAN CORPUSCULAR VOLUME 86 fL (80-96); MONOCYTES # (AUTO) 0.8 /CMM (0.1-1.30); MONOCYTES % (AUTO) 7.9 % (2.0-12.0); NEUTROPHILS % (AUTO) 60.3 % (43.0-81.0); PLATELET COUNT (AUTO) 258 /CMM (150-450); RED BLOOD CELL COUNT(AUTO) 5.11 MIL/uL (4.5-6.0)
--- NOTE | 2019-12-10 03:14 | NUR ---
PER RADIOLOGIST US ON HIS WAY.
[2019-12-10 03:15] LABS: ALBUMIN 3.6 g/dL (3.4-5.0); BILIRUBIN,DIRECT 0.1 mg/dL (0.0-0.2); BILIRUBIN,TOTAL 0.5 mg/dL (0.2-1.0); CALCIUM, SERUM 8.8 mg/dL (8.5-10.1); CREATININE 0.9 mg/dL (0.6-1.3); POTASSIUM 3.3 mmol/L (3.5-5.1); TOTAL PROTEIN, SERUM 8.5 g/dL (6.4-8.2)
[2019-12-10] MEDS ORDERED: HYDROMORPHONE 1 MG/1 ML DISP.SYRIN ONE (03:19)
[2019-12-10] MEDS ORDERED: HYDROMORPHONE INJ 0.5 MG/0.5 ML SYRINGE IV ONE (03:30)
--- NOTE | 2019-12-10 03:49 | NUR ---
US AT BEDSIDE
[2019-12-10] MEDS ORDERED: IOHEXOL-300 100 ML VIAL IV ONE (04:08)
[2019-12-10] MEDS ORDERED: IV NS 0.9% 250 ML IV ONE (04:09)
--- NOTE | 2019-12-10 04:42 | NUR ---
BROUGHT BACK FROM CT
--- NOTE | 2019-12-10 05:09 | NUR ---
SPOKE TO PT, STATED "DILAUDID HELPED ME" DENIES PAIN, VSS.
--- NOTE | 2019-12-10 06:00 | NUR ---
IV removed. Catheter intact and site benign. Pressure and 4x4 applied to site. No bleeding noted.
--- NOTE | 2019-12-10 06:00 | NUR ---
Patient discharged to home in stable condition. Written and verbal after care instructions given. Patient verbalizes understanding of instruction and RX. Pt ambualted with steady gait. Denies pain.
[2019-12-10 06:01] VITALS: BP 122/63
== END 2019-12-10 06:02 | disposition home or self-care (01) ==
LOC: ER 02:31
DX: R10.13 Epigastric pain (principal); R10.84 Generalized abdominal pain; R10.30 Lower abdominal pain, unspecified; R11.2 Nausea with vomiting, unspecified; I10 Essential (primary) hypertension; E78.00 Pure hypercholesterolemia, unspecified; J45.909 Unspecified asthma, uncomplicated; F31.9 Bipolar disorder, unspecified; F12.90 Cannabis use, unspecified, uncomplicated; Z79.899 Other long term (current) drug therapy; Z79.82 Long term (current) use of aspirin
CPT/HCPCS: 36415; 74177; 76705; 80048; 80076; 83690; 85025; 96361; 96374; 96375; 99285; J1170; J1885; J2405; J7030; J7050; Q9967

== ENCOUNTER 2024-05-29 14:28 | Emergency (ER) | payer BC, OTHER ==
[~2024-05-29] VITALS: Ht 190.5 cm; Wt 74.8 kg
[2024-05-29 14:32] VITALS: TEMP 98.4
[2024-05-29] MEDS ORDERED: MULTIVITAMINS,THERAGRAN 1 UDTAB TABLET ONE (15:26)
[2024-05-29] MEDS ORDERED: THIAMINE HCL 100 MG TABLET ONE (15:27)
[2024-05-29] MEDS ORDERED: FOLIC ACID 1 MG TABLET ONE (15:27)
[2024-05-29] MEDS ORDERED: ONDANSETRON 4 MG TAB.RAPDIS ONE (15:27)
[2024-05-29] MEDS: IV NS 0.9% 1,000 ML BAG IV ONE (15:30)
[2024-05-29] MEDS: FOLIC ACID 1 MG TABLET PO ONE (15:33)
[2024-05-29] MEDS: ONDANSETRON 4 MG TAB.RAPDIS SL ONE (15:33)
[2024-05-29] MEDS: THIAMINE HCL 100 MG TABLET PO ONE (15:33)
[2024-05-29] MEDS: MULTIVIT W/MINERALS 1 TAB TABLET PO ONE (15:33)
[2024-05-29 15:51] LABS: BASOPHILS # (AUTO) 0.3 K/uL (0.0-0.2); BASOPHILS % (AUTO) 4.6 % (0.0-2.0); EOSINOPHILS % (AUTO) 0.4 % (0.0-6.0); HEMATOCRIT 37 % (39-51); HEMOGLOBIN 12.4 g/dL (13.5-17.5); LYMPHOCYTES # (AUTO) 1.9 K/uL (0.8-4.8); LYMPHOCYTES % (AUTO) 34.3 % (20.0-44.0); MEAN CORPUSCULAR HEMOGLOBIN 29 PG (26.0-33.0); MEAN CORPUSCULAR HGB CONC 33 g/dl (31.0-36.0); MEAN CORPUSCULAR VOLUME 86 fL (80-96); MONOCYTES # (AUTO) 0.6 K/uL (0.1-1.30); MONOCYTES % (AUTO) 11.2 % (2.0-12.0); NEUTROPHILS # (AUTO) 2.8 K/uL (1.8-8.9); NEUTROPHILS % (AUTO) 49.5 % (43.0-81.0); PLATELET COUNT (AUTO) 533 K/uL (150-450); RED BLOOD CELL COUNT(AUTO) 4.32 MIL/uL (4.5-6.0); RED CELL DISTRIBUTION WIDTH 20.5 % (11.5-15.0); WHITE BLOOD COUNT (AUTO) 5.6 K/uL (4.3-11.0)
[2024-05-29] MEDS: FAMOTIDINE/PF INJ 20 MG/2 ML VIAL IV ONE (16:00)
[2024-05-29] MEDS: MAG HYDROX/AL HYDROX/SIMETH 30 ML UDC PO ONE (16:00)
[2024-05-29] MEDS: LORAZEPAM INJ 2 MG/ML VIAL IV ONE (16:00)
[2024-05-29 16:24] LABS: ALBUMIN 2.9 g/dL (3.4-5.0); BILIRUBIN,TOTAL 0.6 mg/dL (0.2-1.0); CALCIUM, SERUM 8.2 mg/dL (8.5-10.1); CREATININE 0.6 mg/dL (0.6-1.3); POTASSIUM 4.5 mmol/L (3.5-5.1); TOTAL PROTEIN, SERUM 6.7 g/dL (6.4-8.2)
[2024-05-29 21:23] VITALS: BP 119/88; O2SAT 98
== END 2024-05-29 19:24 | disposition home or self-care (01) ==
LOC: ER 14:35
DX: F10.129 Alcohol abuse with intoxication, unspecified (principal); F12.90 Cannabis use, unspecified, uncomplicated; E78.00 Pure hypercholesterolemia, unspecified; F17.200 Nicotine dependence, unspecified, uncomplicated; Y90.9 Presence of alcohol in blood, level not specified; I10 Essential (primary) hypertension; J45.909 Unspecified asthma, uncomplicated; K86.1 Other chronic pancreatitis; Z79.82 Long term (current) use of aspirin; Z79.899 Other long term (current) drug therapy
CPT/HCPCS: 99284; 96374; 96361; 85025; 83690; 36415; 80053; J3490; J7030; Q0162

== ENCOUNTER 2024-08-05 07:08 | Inpatient (IN) | payer OTHER ==
[~2024-08-05] VITALS: Ht 188 cm; Wt 73.5 kg
[2024-08-05] MEDS ORDERED: LORAZEPAM INJ 2 MG/ML VIAL ONE ×2 (07:37→12:48)
[2024-08-05] MEDS ORDERED: FAMOTIDINE/PF INJ 20 MG/2 ML VIAL IV ONE (07:37)
[2024-08-05] MEDS ORDERED: MAG HYDROX/AL HYDROX/SIMETH 30 ML UDC ONE (07:37)
[2024-08-05] MEDS: MAG HYDROX/AL HYDROX/SIMETH 30 ML UDC PO ONE (08:00)
[2024-08-05] MEDS: FAMOTIDINE/PF INJ 20 MG/2 ML VIAL IV ONE (08:00)
[2024-08-05] MEDS: LORAZEPAM INJ 2 MG/ML VIAL IVP ONE (08:00)
[2024-08-05 08:11] LABS: BASOPHILS # (AUTO) 0.1 K/uL (0.0-0.2); BASOPHILS % (AUTO) 1.7 % (0.0-2.0); EOSINOPHILS # (AUTO) 0.1 K/uL (0.0-0.7); EOSINOPHILS % (AUTO) 1.2 % (0.0-6.0); HEMATOCRIT 36 % (39-51); HEMOGLOBIN 11.9 g/dL (13.5-17.5); LYMPHOCYTES # (AUTO) 1.5 K/uL (0.8-4.8); LYMPHOCYTES % (AUTO) 22.2 % (20.0-44.0); MEAN CORPUSCULAR HEMOGLOBIN 29 PG (26.0-33.0); MEAN CORPUSCULAR HGB CONC 33 g/dl (31.0-36.0); MEAN CORPUSCULAR VOLUME 86 fL (80-96); MONOCYTES # (AUTO) 0.7 K/uL (0.1-1.30); MONOCYTES % (AUTO) 10.4 % (2.0-12.0); NEUTROPHILS # (AUTO) 4.4 K/uL (1.8-8.9); NEUTROPHILS % (AUTO) 64.5 % (43.0-81.0); PLATELET COUNT (AUTO) 208 K/uL (150-450); RED BLOOD CELL COUNT(AUTO) 4.12 MIL/uL (4.5-6.0); RED CELL DISTRIBUTION WIDTH 20.3 % (11.5-15.0); WHITE BLOOD COUNT (AUTO) 6.8 K/uL (4.3-11.0)
[2024-08-05] MEDS: IV NS 0.9% 1,000 ML BAG IV ONE (08:25)
[2024-08-05 08:31] LABS: CALCIUM, SERUM 8.6 mg/dL (8.5-10.1); CARBON DIOXIDE 29 mmol/L (21-32); CHLORIDE 93 mmol/L (98-107); CREATININE 0.5 mg/dL (0.6-1.3); GLUCOSE 151 mg/dL (74-106); SODIUM SERUM 134 mmol/L (136-145); UREA NITROGEN, BLOOD 6 mg/dL (7-18)
[2024-08-05 08:32] LABS: POTASSIUM 2.2 mmol/L (3.5-5.1)
[2024-08-05 08:50] LABS: BILIRUBIN,DIRECT 0.4 mg/dL (0.0-0.2); BILIRUBIN,TOTAL 0.9 mg/dL (0.2-1.0)
[2024-08-05 08:51] LABS: ALANINE AMINOTRANSFERASE 40 U/L (12-78); ALBUMIN 2.3 g/dL (3.4-5.0); ALKALINE PHOSPHATASE 852 U/L (46-116); ASPARTATE AMINOTRANSFERASE 57 U/L (15-37); TOTAL PROTEIN, SERUM 6.1 g/dL (6.4-8.2)
[2024-08-05 08:52] LABS: ACETAMINOPHEN 2 ug/ml (10-30); ALCOHOL, BLOOD < 10 mg/dL (0-10); SALICYLATE < 2.8 mg/dL (2.8-20.0)
[2024-08-05 09:03] LABS: APPEARANCE,URINE CLEAR (CLEAR); BILIRUBIN,URINE NEGATIVE (NEGATIVE); BLOOD, URINE NEGATIVE Ery/uL (NEGATIVE); COLOR,URINE YELLOW (YELLOW); KETONES,URINE NEGATIVE (NEGATIVE); LEUKOCYTE ESTERASE ,URINE NEGATIVE (NEGATIVE); NITRITE, URINE NEGATIVE (NEGATIVE); PH,URINE 6.5 (5.0-8.0); PROTEIN,URINE NEGATIVE (NEGATIVE); UGLUCOSE NEGATIVE (NEGATIVE)
[2024-08-05 09:16] LABS: ADD URINE CULTURE NO; BACTERIA,URINE Few /HPF (None Seen); RBC,URINE 0-2 /HPF (0-2); SPERM,URINE Present /HPF (None Seen); WBC,URINE 0-2 /HPF (0-3)
[2024-08-05 09:23] LABS: AMPHETAMINE, URINE NEGATIVE (NEGATIVE); BARBITURATE, URINE NEGATIVE (NEGATIVE); BENZODIAZEPINE, URINE NEGATIVE (NEGATIVE); CANNABINOID, URINE NEGATIVE (NEGATIVE); COCCAINE, URINE NEGATIVE (NEGATIVE); OPIATE, URINE NEGATIVE (NEGATIVE); PHENCYCLIDINE SCREEN,URINE NEGATIVE (NEGATIVE)
[2024-08-05] MEDS ORDERED: POTASSIUM CL. PREMIX PERIPHER. 50 ML ONE ×3 (09:35→11:46)
[2024-08-05] MEDS ORDERED: POTASSIUM CHLORIDE 20 MEQ TAB.PRT.SR PO ONE (09:35)
[2024-08-05] MEDS: POTASSIUM CL. PREMIX PERIPHER. 50 ML IV SCH ×2 (09:46→15:15)
[2024-08-05] MEDS: POTASSIUM CHLORIDE 20 MEQ TAB.PRT.SR PO ONE ×2 (09:47→22:41)
[2024-08-05] MEDS ORDERED: VARE1TAB PO (11:15)
[2024-08-05] MEDS ORDERED: BACL20TA PO (11:15)
[2024-08-05] MEDS ORDERED: MIRABEGRON PO (11:15)
[2024-08-05] MEDS ORDERED: BUSP30TA2 PO (11:15)
[2024-08-05] MEDS ORDERED: METO25TA20 PO (11:15)
[2024-08-05] MEDS ORDERED: FINA5TAB11 PO (11:15)
[2024-08-05] MEDS ORDERED: AMYL1CAP56 PO (11:15)
[2024-08-05] MEDS ORDERED: PANT40TA49 PO (11:15)
[2024-08-05] MEDS ORDERED: TIOT4MIS5 PO (11:15)
[2024-08-05] MEDS ORDERED: TOLT2CAP22 PO (11:15)
[2024-08-05] MEDS ORDERED: ATOR20TA PO (11:15)
[2024-08-05] MEDS ORDERED: MELA5TAB PO (11:15)
[2024-08-05] MEDS ORDERED: LURA80TA PO (11:15)
[2024-08-05] MEDS ORDERED: QUET200T PO (11:15)
[2024-08-05] MEDS ORDERED: TAMS-12 PO (11:15)
[2024-08-05] MEDS ORDERED: PREG-57 PO (11:15)
[2024-08-05] MEDS ORDERED: Magnesium 1 GM/2 ML VIAL IV ONE (12:00)
[2024-08-05] MEDS: LORAZEPAM INJ 2 MG/ML VIAL IV ONE (12:56)
[2024-08-05] MEDS ORDERED: Magnesium 1GM/D5W 100ML PREMIX 100 ML IV ONE (13:04)
[2024-08-05] MEDS: Magnesium 1GM/D5W 100ML PREMIX 100 ML IV SCH (13:33)
[2024-08-05] MEDS ORDERED: MAGNESIUM HYDROXIDE 30 ML UDC PO PRN (14:00)
[2024-08-05] MEDS ORDERED: ACETAMINOPHEN 325 MG TABLET PO PRN (14:00)
[2024-08-05] MEDS ORDERED: MAG HYDROX/AL HYDROX/SIMETH 30 ML UDC PO PRN (14:00)
[2024-08-05] MEDS ORDERED: LORAZEPAM INJ 2 MG/ML VIAL IV PRN (14:00)
[2024-08-05] MEDS ORDERED: Z GUARD REMEDY 4 OZ OINT TP PRN (14:00)
[2024-08-05] MEDS ORDERED: ONDANSETRON HCL/PF 4 MG/2 ML VIAL IVP PRN (14:00)
[2024-08-05] MEDS: Thiamine 100 MG in IV D5W 50 ML IV SCH (14:41)
[2024-08-05] MEDS ORDERED: POTASSIUM CHLORIDE 10 MEQ/50 ML PREMIXED IVPB FOR PERIPHERAL LINE IV ONE (15:30)
[2024-08-05] MEDS: CHLORDIAZEPOXIDE HCL 25 MG CAPSULE PO SCH (16:10)
[2024-08-05 17:07] VITALS: BP 129/95; TEMP 98.3; O2SAT 95
[2024-08-05] MEDS: METOPROLOL TARTRATE 25 MG TABLET PO SCH (18:39)
[2024-08-05 19:36] LABS: CALCIUM, SERUM 8.3 mg/dL (8.5-10.1); CREATININE 0.6 mg/dL (0.6-1.3); MAGNESIUM 2.1 mg/dL (1.8-2.4); POTASSIUM 2.9 mmol/L (3.5-5.1)
[2024-08-05 20:00] VITALS: BP 110/90; TEMP 97.5; O2SAT 99
[2024-08-05] MEDS: FINASTERIDE (5 MG) 5 MG TABLET PO SCH (21:19)
[2024-08-05] MEDS: TAMSULOSIN 0.4 MG CAP.SR.24H PO SCH (21:19)
[2024-08-05] MEDS: TOLTERODINE 2 MG CAP.SR PO SCH (21:19)
[2024-08-05 21:28] VITALS: O2SAT 92
[2024-08-05] MEDS: ALBUTEROL FS 2.5 MG/3 ML VIAL.NEB NEB PRN (21:32)
[2024-08-05] MEDS: QUETIAPINE FUMARATE 100 MG TABLET PO SCH (21:34)
[2024-08-05 21:42] VITALS: O2SAT 99
[2024-08-06] VITALS: BP 134/97; TEMP 97.5; O2SAT 97
[2024-08-06 05:00] VITALS: BP 106/78; TEMP 97.7; O2SAT 97
[2024-08-06 08:32] VITALS: BP 103/73; TEMP 98.4; O2SAT 97
[2024-08-06 08:54] LABS: OCCULT BLOOD STOOL POSITIVE (NEGATIVE)
[2024-08-06] MEDS ORDERED: FAMOTIDINE (20 MG) 20 MG TABLET PO SCH (09:00)
[2024-08-06] MEDS: ATORVASTATIN 10 MG TABLET PO SCH (09:51)
[2024-08-06] MEDS: busPIRone 5 MG TABLET PO SCH (09:51)
[2024-08-06] MEDS: PREGABALIN 25 MG CAPSULE PO SCH (09:52)
[2024-08-06] MEDS: PANTOPRAZOLE 40 MG TABLET.DR PO SCH (09:53)
[2024-08-06 11:32] LABS: BASOPHILS # (AUTO) 0.1 K/uL (0.0-0.2); BASOPHILS % (AUTO) 1.4 % (0.0-2.0); EOSINOPHILS # (AUTO) 0.1 K/uL (0.0-0.7); EOSINOPHILS % (AUTO) 2.3 % (0.0-6.0); HEMATOCRIT 29 % (39-51); HEMOGLOBIN 9.3 g/dL (13.5-17.5); LYMPHOCYTES # (AUTO) 1.7 K/uL (0.8-4.8); LYMPHOCYTES % (AUTO) 30.3 % (20.0-44.0); MEAN CORPUSCULAR HEMOGLOBIN 29 PG (26.0-33.0); MEAN CORPUSCULAR HGB CONC 33 g/dl (31.0-36.0); MEAN CORPUSCULAR VOLUME 87 fL (80-96); MONOCYTES # (AUTO) 0.8 K/uL (0.1-1.30); NEUTROPHILS # (AUTO) 2.9 K/uL (1.8-8.9); PLATELET COUNT (AUTO) 186 K/uL (150-450); RED BLOOD CELL COUNT(AUTO) 3.26 MIL/uL (4.5-6.0); RED CELL DISTRIBUTION WIDTH 21.4 % (11.5-15.0); WHITE BLOOD COUNT (AUTO) 5.5 K/uL (4.3-11.0)
[2024-08-06 11:46] LABS: CALCIUM, SERUM 8.3 mg/dL (8.5-10.1); CREATININE 0.6 mg/dL (0.6-1.3); PHOSPHORUS 4.5 mg/dL (2.5-4.9); POTASSIUM 3.1 mmol/L (3.5-5.1)
[2024-08-06 12:24] VITALS: BP 101/71; TEMP 97.5; O2SAT 99
[2024-08-06] MEDS: ASCORBIC ACID 500 MG TABLET PO SCH (12:26)
[2024-08-06] MEDS: ZINC SULFATE 220 MG CAPSULE PO SCH (12:26)
[2024-08-06] MEDS: THIAMINE HCL 100 MG TABLET PO SCH (14:07)
[2024-08-06] MEDS: POTASSIUM CHLORIDE 20 MEQ TAB.PRT.SR PO ONE (15:15)
[2024-08-06 16:13] VITALS: BP 107/71; TEMP 98.2; O2SAT 99
[2024-08-06] MEDS: IV NS 0.9% 1,000 ML BAG IV SCH (16:41)
[2024-08-06 20:00] VITALS: BP 117/61; TEMP 98.2; O2SAT 96
[2024-08-07] VITALS (9 sets, daily range): BP systolic 97–128; BP diastolic 70–84; TEMP 97.5–98.2; O2SAT 93–98
[2024-08-07 06:56] LABS: BASOPHILS # (AUTO) 0.1 K/uL (0.0-0.2); BASOPHILS % (AUTO) 1.4 % (0.0-2.0); EOSINOPHILS # (AUTO) 0.1 K/uL (0.0-0.7); EOSINOPHILS % (AUTO) 2.7 % (0.0-6.0); HEMATOCRIT 27 % (39-51); HEMOGLOBIN 8.8 g/dL (13.5-17.5); LYMPHOCYTES # (AUTO) 1.8 K/uL (0.8-4.8); LYMPHOCYTES % (AUTO) 34.4 % (20.0-44.0); MEAN CORPUSCULAR HEMOGLOBIN 29 PG (26.0-33.0); MEAN CORPUSCULAR HGB CONC 32 g/dl (31.0-36.0); MEAN CORPUSCULAR VOLUME 90 fL (80-96); MONOCYTES # (AUTO) 0.8 K/uL (0.1-1.30); MONOCYTES % (AUTO) 16.1 % (2.0-12.0); NEUTROPHILS # (AUTO) 2.4 K/uL (1.8-8.9); NEUTROPHILS % (AUTO) 45.4 % (43.0-81.0); PLATELET COUNT (AUTO) 198 K/uL (150-450); RED BLOOD CELL COUNT(AUTO) 3.05 MIL/uL (4.5-6.0); RED CELL DISTRIBUTION WIDTH 21.4 % (11.5-15.0); WHITE BLOOD COUNT (AUTO) 5.2 K/uL (4.3-11.0)
[2024-08-07 07:15] LABS: CALCIUM, SERUM 7.9 mg/dL (8.5-10.1); CREATININE 0.4 mg/dL (0.6-1.3); MAGNESIUM 1.9 mg/dL (1.8-2.4); PHOSPHORUS 4.4 mg/dL (2.5-4.9); POTASSIUM 3.6 mmol/L (3.5-5.1)
[2024-08-07] MEDS: POVIDONE-IODINE OINT 28.4 GM TUBE TP SCH (11:18)
[2024-08-07] MEDS: AMMONIUM LACTATE 227 GM BOTTLE TP SCH (11:18)
[2024-08-07] MEDS ORDERED: THIA100T74 PO (12:44)
[2024-08-07] MEDS ORDERED: ZINC220T3 PO (12:44)
[2024-08-07] MEDS ORDERED: POVI28.4 TP (12:44)
[2024-08-08] VITALS: BP 97/64; TEMP 97.9; O2SAT 99
[2024-08-08 00:40] VITALS: O2SAT 94
[2024-08-08 04:00] VITALS: BP 99/70; TEMP 98.1; O2SAT 98
[2024-08-08 08:00] VITALS: BP 103/77; TEMP 97.7; O2SAT 96
[2024-08-08 12:00] VITALS: BP 109/80; TEMP 97.3; O2SAT 99
== END 2024-08-08 16:53 | disposition home or self-care (01) | DRG 42 ==
LOC: ER 07:13 → TELE 12:53
PROVIDERS: ADMIT Nurse Practitioner Acute Care; ATTEND Nurse Practitioner Acute Care
DX: G31.2 Degeneration of nervous system due to alcohol (principal); E87.20 Acidosis, unspecified; L89.152 Pressure ulcer of sacral region, stage 2; K86.3 Pseudocyst of pancreas; L89.513 Pressure ulcer of right ankle, stage 3; E87.1 Hypo-osmolality and hyponatremia; E88.09 Other disorders of plasma-protein metabolism, not elsewhere classified; E86.0 Dehydration; S61.011A Laceration without foreign body of right thumb without damage to nail, initial encounter; D64.9 Anemia, unspecified; E87.6 Hypokalemia; L89.522 Pressure ulcer of left ankle, stage 2; F10.239 Alcohol dependence with withdrawal, unspecified; F10.229 Alcohol dependence with intoxication, unspecified; K21.9 Gastro-esophageal reflux disease without esophagitis; E83.42 Hypomagnesemia; E78.00 Pure hypercholesterolemia, unspecified; I10 Essential (primary) hypertension; J45.909 Unspecified asthma, uncomplicated; F31.9 Bipolar disorder, unspecified; Z79.51 Long term (current) use of inhaled steroids; Z79.899 Other long term (current) drug therapy; Y90.0 Blood alcohol level of less than 20 mg/100 ml; Z90.411 Acquired partial absence of pancreas; Z91.81 History of falling; S71.112A Laceration without foreign body, left thigh, initial encounter; X58.XXXA Exposure to other specified factors, initial encounter; Y92.9 Unspecified place or not applicable; S70.212A Abrasion, left hip, initial encounter; R53.1 Weakness; Z74.09 Other reduced mobility; R23.4 Changes in skin texture; Z59.00 Homelessness unspecified
CPT/HCPCS: 36415; 71045-TC; 80048-TC; 80076-TC; 81001; 82272-TC; 83605-TC; 83690-TC; 83735-TC; 84100-TC; 84484-TC; 85025-TC; 87040-TC; 87081-TC; 94760-TC; 94762-TC; 94799-TC; 97110-TC; 97116-TC; 97530-TC; A4223; A6253; A6403; G0378; G0480; J1308; J2060; J3411; J3475; J3480; J7030; J7050; J7060

== ENCOUNTER 2024-08-26 06:18 | Emergency (ER) | payer OTHER ==
[~2024-08-26] VITALS: Ht 188 cm; Wt 79.4 kg
[~2024-08-26 06:18] MED LIST changes: +AMYL1CAP56 PO; -ASPI-1498 PO; +ATOR20TA PO; +BACL20TA PO; -BENA20TA9 PO; +BUSP30TA2 PO; -ESCI10TA PO; +FINA5TAB11 PO; -LITH300T3 PO; +LURA80TA PO; +MELA5TAB PO; +METO25TA20 PO; +MIRABEGRON PO; +PANT40TA49 PO; +POVI28.4 TP; +PREG-57 PO; -QUET100T PO; +QUET200T PO; -SIMV-49 PO; +TAMS-12 PO; +THIA100T74 PO; +TIOT4MIS5 PO; +TOLT2CAP22 PO; +VARE1TAB PO; +ZINC220T3 PO
[2024-08-26 07:59] LABS: CALCIUM, SERUM 8.6 mg/dL (8.5-10.1); CREATININE 0.6 mg/dL (0.6-1.3); POTASSIUM 4.3 mmol/L (3.5-5.1)
[2024-08-26 08:05] LABS: ALBUMIN 2.7 g/dL (3.4-5.0); BILIRUBIN,DIRECT 0.1 mg/dL (0.0-0.2); BILIRUBIN,TOTAL 0.4 mg/dL (0.2-1.0); TOTAL PROTEIN, SERUM 6.1 g/dL (6.4-8.2)
[2024-08-26] MEDS ORDERED: TRAM50TA2 PO (09:30)
[2024-08-26 09:50] VITALS: BP 144/91; TEMP 99.1; O2SAT 98
== END 2024-08-26 09:50 | disposition home or self-care (01) ==
LOC: ER 06:21
DX: M79.641 Pain in right hand (principal); M79.642 Pain in left hand; M25.511 Pain in right shoulder; M25.512 Pain in left shoulder; M25.532 Pain in left wrist; I10 Essential (primary) hypertension; J45.909 Unspecified asthma, uncomplicated; F12.90 Cannabis use, unspecified, uncomplicated; E78.00 Pure hypercholesterolemia, unspecified; F31.9 Bipolar disorder, unspecified; F17.200 Nicotine dependence, unspecified, uncomplicated; Z79.899 Other long term (current) drug therapy; W01.0XXA Fall on same level from slipping, tripping and stumbling without subsequent striking against object, initial encounter; Y93.89 Activity, other specified; Y92.89 Other specified places as the place of occurrence of the external cause; Y99.8 Other external cause status
CPT/HCPCS: 36415; 73130-TC; 80048-TC; 80076-TC

== ENCOUNTER 2024-09-06 21:41 | Emergency (ER) | payer OTHER ==
[~2024-09-06] VITALS: Ht 175.3 cm; Wt 66.7 kg
[~2024-09-06 21:41] MED LIST changes: +TRAM50TA2 PO
[2024-09-06 21:54] VITALS: BP 142/85; TEMP 97.8; O2SAT 98
[2024-09-06] MEDS ORDERED: CHLO25CA22 PO (21:55)
== END 2024-09-06 22:08 | disposition home or self-care (01) ==
LOC: ER 21:49
DX: F10.20 Alcohol dependence, uncomplicated (principal); E78.5 Hyperlipidemia, unspecified; F12.90 Cannabis use, unspecified, uncomplicated; F17.200 Nicotine dependence, unspecified, uncomplicated; F31.9 Bipolar disorder, unspecified; I10 Essential (primary) hypertension; J45.909 Unspecified asthma, uncomplicated; Z79.899 Other long term (current) drug therapy